=== PATIENT | female | born 1980 | race Caucasian/White ===

== ENCOUNTER 2024-04-06 13:16 | Outpatient (CLI) | payer MEDICAID | END 2024-04-06 23:59 | disposition home or self-care (01) | LOC: CARD DIAG 13:16 | PROVIDERS: ATTEND Nurse Practitioner | DX: I08.8 Other rheumatic multiple valve diseases (principal); R42 Dizziness and giddiness; R00.1 Bradycardia, unspecified; R00.2 Palpitations | CPT/HCPCS: 93306 ==